=== PATIENT | female | born 1980 | race Caucasian/White ===

== ENCOUNTER 2019-09-04 11:39 | Emergency (ER) | payer MEDICAID ==
[~2019-09-04] VITALS: Ht 170.2 cm; Wt 122.5 kg
[2019-09-04] MEDS ORDERED: BRINTELLIX5 MG PO (11:49)
[2019-09-04] MEDS ORDERED: AMITRIPTYLINE H25 M4 PO (11:49)
[2019-09-04 12:40] LABS: URINE BILIRUBIN NEGATIVE (Negative); URINE BLOOD NEGATIVE (Negative); URINE CLARITY CLEAR; URINE COLOR YELLOW; URINE GLUCOSE-RANDOM NEGATIVE (Negative); URINE KETONES NEGATIVE (Negative); URINE LEUKOCYTES-REFLEX NEGATIVE (Negative); URINE NITRITE-REFLEX NEGATIVE (Negative); URINE PROTEIN NEGATIVE (Negative); URINE UROBILINOGEN 0.2 E.U./dl (0.2-1.0)
[2019-09-04 12:45] VITALS: BP 125/70
== END 2019-09-04 12:59 | disposition home or self-care (01) ==
LOC: M.ERS 11:39
PROVIDERS: Nurse Practitioner Family
DX: R82.998 Other abnormal findings in urine (principal); Z98.51 Tubal ligation status